=== PATIENT | male | born 2000 | race Caucasian/White ===

== ENCOUNTER 2019-10-14 17:37 | Emergency (ER) | payer OTHER ==
[~2019-10-14] VITALS: Ht 182.9 cm; Wt 63.6 kg
[2019-10-14] MEDS ORDERED: CVS IBUPROFEN200 M3 PO (17:51)
[2019-10-14 18:50] VITALS: BP 115/70
== END 2019-10-14 18:50 | disposition home or self-care (01) | DRG 556 ==
LOC: ED 17:37
DX: M79.672 Pain in left foot (principal); W16.112A Fall into natural body of water striking water surface causing other injury, initial encounter; Y93.11 Activity, swimming; Y92.833 Campsite as the place of occurrence of the external cause